=== PATIENT | female | born 1975 | race Caucasian/White ===

== ENCOUNTER 2016-10-31 09:06 | Emergency (ER) | payer BC ==
[~2016-10-31] VITALS: Wt 67.0 kg
[~2016-10-31 09:06] MED LIST: ACET500C5 PO; AMOX1TAB67 PO; AZIT500T3 PO; CALC-649; CIPR500T4 PO; DOCU-144 PO; FLUC150T17 PO; HYDR-3498 PO; IBUP-1542 PO; IBUP400T22 PO; METF500T4 PO; NAPR-260 PO; NPH; PRED20TA PO; SIME180C36 PO; SS
[2016-10-31 10:12] LABS: URINE BLOOD (Dip) POC Negative (NEGATIVE)
[2016-10-31] MEDS ORDERED: SOD CHLORIDE 0.9% 1,000 ML IV ONE (11:00)
[2016-10-31] MEDS ORDERED: INSULIN LISPRO 100 UNIT/ML VIAL SC STA (11:26)
[2016-10-31] MEDS ORDERED: INSULIN ASPART [NOVOLOG] 3 ML PEN SC STA (11:55)
[2016-10-31 11:59] LABS: BASOPHILS % 0.4 % (0.0-2.0); EOSINOPHILS # 0.2 10^3/ul (0.0-0.5); EOSINOPHILS % 1.7 % (0.0-7.0); HEMATOCRIT 40.7 % (37.0-47.0); HEMOGLOBIN 13.9 g/dl (12.0-16.0); LYMPHOCYTES # 2.9 10^3/ul (0.8-2.9); MEAN CORPUSCULAR HEMOGLOBIN 29.3 pg (29.0-33.0); MEAN CORPUSCULAR HGB CONC 34.1 g/dl (32.0-37.0); MEAN CORPUSCULAR VOLUME 86.1 fl (82.0-101.0); MEAN PLATELET VOLUME 8.2 fl (7.4-10.4); MONOCYTE # 0.6 10^3/ul (0.3-0.9); MONOCYTES % 6.5 % (0.0-11.0); NEUTROPHIL # 5.2 10^3/ul (1.6-7.5); NEUTROPHILS % 58.4 % (39.0-77.0); PLATELET COUNT 342 10^3/UL (140-440); RED BLOOD COUNT 4.72 10^6/ul (4.20-5.40); RED CELL DISTRIBUTION WIDTH 13.5 % (11.5-14.5); UNCORRECTED WBC 8.9 10^3/ul (4.8-10.8); WHITE BLOOD COUNT 8.9 10^3/ul (4.8-10.8)
[2016-10-31 12:00] LABS: CONDITION 1
[2016-10-31 12:02] LABS: ALBUMIN 4.7 g/dl (3.3-4.9)
[2016-10-31 12:03] LABS: POTASSIUM 4.3 mmol/L (3.5-5.1)
[2016-10-31 12:05] LABS: ALBUMIN/GLOBULIN RATIO 1.23; BILIRUBIN,INDIRECT 0.3 mg/dl (0-1.1); BILIRUBIN,TOTAL 0.3 mg/dl (0.2-1.3); CREATININE 0.53 mg/dl (0.44-1.00); TOTAL PROTEIN 8.5 g/dl (6.1-8.1)
[2016-10-31 12:06] LABS: CALCIUM 10.2 mg/dl (8.4-10.2)
[2016-10-31] MEDS ORDERED: NITR-58 PO (12:29)
[2016-10-31] MEDS ORDERED: FLUC150T17 PO (12:30)
[2016-10-31] MEDS ORDERED: MICO24CM3 VAG (12:30)
[2016-10-31 12:45] VITALS: BP 114/75; PULSE 79; RESP 21; TEMP 98.7
--- NOTE | 2016-10-31 16:09 | ERD ---
ER Documentation Chief Complaint Date/Time DATE: 10/31/16 TIME: 16:07 Chief Complaint VAGINAL DISCHARGE FOR A FEW DAYS. VAGINAL ITCHING ASWELL. NO BLEEDING HPI This is a 41-year-old female presents to the ER for white cottage cheese like vaginal discharge and vaginal itching. Patient denies any urinary frequency or dysuria. She denies any pelvic pain. Has a past medical history of diabetes and states that she gets infections often secondary to her elevated blood sugars. Denies any fevers or chills. ROS 12 point review of systems was done, all negative except per HPI. Medications Home Meds Active Scripts Miconazole Nitrate* (Monistat 3*) 24 Gm Cmb.pf.crm, 1 APPFUL VAG HS for 3 Days, TUB X 3 Prov:JOHAN AVALOS 10/31/16 Fluconazole* (Diflucan*) 150 Mg Tablet, 150 MG PO DAILY for 1 Day, TAB Prov:JOHAN AVALOS 10/31/16 Nitrofurantoin Monohyd Macrocr* (Macrobid*) 100 Mg Capsr, 100 MG PO BID for 7 Days, CAP Prov:JOHAN AVALOS 10/31/16 Fluconazole* (Diflucan*) 150 Mg Tablet, 150 MG PO ONCE, #1 TAB Prov:DIANELYS SEQUEIRA PA-C 06/19/16 Metformin* (Glucophage*) 500 Mg Tab, 500 MG PO BID, #30 TAB Prov:DIANELYS SEQUEIRA PA-C 06/19/16 Docusate Sodium* (Colace*) 100 Mg Capsule, 100 MG PO BID, #60 CAP Prov:DIANELYS SEQUEIRA PA-C 06/19/16 Simethicone (Simethicone) 180 Mg Capsule, 180 MG PO DAILY, #10 CAP Prov:DIANELYS SEQUEIRA PA-C 06/19/16 Hydrocodone Bit-Acetaminophen* ([place]*) 5-325 Mg Tab, 1 TAB PO Q6 Y for PAIN, # 7 TAB Prov:NITA DIOR PA-C 04/26/16 Naproxen* (Naprosyn*) 500 Mg Tablet, 500 MG PO BID Y for PAIN AND/OR INFLAMMATION, #30 TAB Prov:NITA DIOR PA-C 04/26/16 Ciprofloxacin Hcl* (Ciprofloxacin Hcl*) 500 Mg Tablet, 500 MG PO BID for 10 Days , TAB Prov:NITA DIOR PA-C 04/26/16 Prednisone* (Prednisone*) 20 Mg Tab, 40 MG PO DAILY for 4 Days, TAB Prov:ALANNAH WAY MD 10/11/15 Ibuprofen* (Motrin*) 600 Mg Tab, 600 MG PO Q6, #14 TAB Prov:ALANNAH WAY MD 10/11/15 Azithromycin* (Zithromax*) 500 Mg Tablet, 500 MG PO DAILY for 5 Days, TAB Prov:ALANNAH WAY MD 10/11/15 Ibuprofen* (Ibuprofen*) 400 Mg Tablet, 400 MG PO Q6H Y for PAIN, #30 TAB Prov:GARRY SANCHEZ PA-C 09/24/15 Acetaminophen* (Tylophen*) 500 Mg Capsule, 1 CAP PO Q4 Y for PAIN AND OR ELEVATED TEMP, #30 CAP Prov:GARRY SANCHEZ PA-C 09/24/15 Amoxicillin-Clavulanate K* (Augmentin*) 500 Mg Tab, 500 MG PO BID for 7 Days, TAB Prov:GARRY SANCHEZ PA-C 09/24/15 Reported Medications Calcium Carbonate (Calcium) 1 Tab Tablet 07/08/10 Insulin Human Nph (Novolin-N) 100 Units/Ml Susp 07/08/10 Insulin Human Nph (Novolin-N) 100 Units/Ml Susp 07/08/10 Insulin Human Regular (Novolin-R U-100) 100 Unit/Ml Soln 07/08/10 Insulin Human Regular (Novolin-R U-100) 100 Unit/Ml Soln 07/08/10 Allergies Allergies: Coded Allergies: No Known Drug Allergy (Verified Allergy, Unknown, 06/19/16) Uncoded Allergies: NKDA (Allergy, Mild, 07/08/10) PMhx/Soc History of Surgery: Yes (CS X 1) Anesthesia Reaction: No Hx Neurological Disorder: No Hx Respiratory Disorders: No Hx Cardiac Disorders: No Hx Psychiatric Problems: No Hx Miscellaneous Medical Probl: No Hx Alcohol Use: No Hx Substance Use: No Hx Tobacco Use: No Physical Exam Vitals Vital Signs Date Time Temp Pulse Resp B/P Pulse Ox O2 Delivery O2 Flow Rate FiO2 10/31/16 12:45 98.7 79 21 114/75 99 Room Air 10/31/16 09:10 98.4 77 21 115/71 99 Physical Exam GENERAL: The patient is well developed and appropriate for usual state of health , in no apparent distress. HEENT: Atraumatic. CHEST: Clear to auscultation bilaterally. There are no rales, wheezes or rhonchi. HEART: Regular rate and rhythm. No murmurs, clicks, rubs or gallops. ABDOMEN: Soft, nontender and nondistended. Good bowel sounds. No rebound or guarding. No gross peritonitis. No gross organomegaly or masses. No Goins sign or McBurney point tenderness. BACK: No midline or flank tenderness. NEURO: Alert and oriented. Result Diagram: 10/31/16 1100 10/31/16 1100 Results 24 hrs Laboratory Tests Test 10/31/16 10:13 10/31/16 10:55 10/31/16 11:00 10/31/16 12:05 Bedside Urine Blood Negative Bedside Urine Glucose (UA) 0.50% Bedside Urine Ketones (LAB) Negative Bedside Urine Leukocyte Esterase (L 1+ Bedside Urine Nitrite (LAB) Positive Bedside Urine Protein (LAB) Negative Bedside Urine pH (LAB) 6.0 Bedside Glucose 312mg/dL 272mg/dL Alanine Aminotransferase (ALT/SGPT) 26IU/L Albumin 4.7g/dl Albumin/Globulin Ratio 1.23 Alkaline Phosphatase 104IU/L Anion Gap 19 Aspartate Amino Transf (AST/SGOT) 16IU/L Basophils # 0.010^3/ul Basophils % 0.4% Blood Urea Nitrogen 12mg/dl Calcium Level 10.2mg/dl Carbon Dioxide Level 26mmol/L Chloride Level 97mmol/L Creatinine 0.53mg/dl Direct Bilirubin 0.00mg/dl Eosinophils # 0.210^3/ul Eosinophils % 1.7% Globulin 3.80g/dl Glucose Level 325mg/dl Hematocrit 40.7% Hemoglobin 13.9g/dl Indirect Bilirubin 0.3mg/dl Lymphocytes # 2.910^3/ul Lymphocytes % 33.0% Mean Corpuscular Hemoglobin 29.3pg Mean Corpuscular Hemoglobin Concent 34.1g/dl Mean Corpuscular Volume 86.1fl Mean Platelet Volume 8.2fl Monocytes # 0.610^3/ul Monocytes % 6.5% Neutrophils # 5.210^3/ul Neutrophils % 58.4% Nucleated Red Blood Cells # 0.010^3/ul Nucleated Red Blood Cells % 0.0/100WBC Platelet Count 37717^3/UL Potassium Level 4.3mmol/L Red Blood Count 4.7210^6/ul Red Cell Distribution Width 13.5% Sodium Level 138mmol/L Total Bilirubin 0.3mg/dl Total Protein 8.5g/dl White Blood Count 8.910^3/ul Current Medications Medications (Trade) Dose Ordered Sig/Brittany Route PRN Reason Start Time Stop Time Status Last Admin Dose Admin Sodium Chloride (NS) 1,000 ml @ 1,000 mls/hr Q1H ONCE IV 10/31/16 11:00 10/31/16 11:59 DC 10/31/16 11:01 Insulin Human Lispro (Humalog) 6 unit ONCE STAT SC 10/31/16 11:26 10/31/16 11:28 DC Insulin Aspart (Novolog Insulin Pen) 6 unit ONCE STAT SC 10/31/16 11:55 10/31/16 11:56 DC 10/31/16 12:07 Procedures/MDM This is a 41-year-old female presents to the ER with vaginal discharge. Patient more likely has a yeast infection. Patient was also contacted a urinary tract infection here in the ER. Throughout the ER course patient stated that her blood sugar was elevated and that she did not take her medication at home. He was also complaining of blurry vision. Because of this bloodwork was done and blood sugar was found to be elevated. Patient was given 6 units of insulin, blood sugar improved. She was also given fluids. Patient will be sent home with Yohana [place] monistat. She is to follow-up with her primary care doctor within 1-2 days or return to ER sooner symptoms worsen. My medical decision making was shared with the patient she understands and agrees with plan. Departure Diagnosis: Primary Impression: Yeast infection Additional Impression: UTI (urinary tract infection) Condition: Stable Patient Instructions: Understanding Urinary Tract Infections (UTIs) Additional Instructions: Call your primary care doctor TOMORROW for an appointment during the next 1-2 days.See the doctor sooner or return here if your condition worsens before your appointment time. JOHAN AVALOS Oct 31, 2016 16:09
== END 2016-10-31 12:46 | disposition home or self-care (01) ==
LOC: FTE 09:06
DX: B37.9 Candidiasis, unspecified (principal); N39.0 Urinary tract infection, site not specified; Z79.84 Long term (current) use of oral hypoglycemic drugs; Z79.4 Long term (current) use of insulin
CPT/HCPCS: 80053; 81003; 82962; 85025; 96372; 99284; J1815; J7030

== ENCOUNTER 2017-04-18 09:35 | Emergency (ER) | payer BC ==
[~2017-04-18] VITALS: Wt 78.0 kg
[~2017-04-18 09:35] MED LIST changes: +MICO24CM3 VAG; +NITR-58 PO
[2017-04-18] MEDS ORDERED: HYDROCODONE/APAP (5/325) TAB PO ONE (10:00)
[2017-04-18 10:33] LABS: ADD UMIC YES; UR ASCORBIC ACID NEGATIVE (NEGATIVE); UR BILIRUBIN (Dip) NEGATIVE (NEGATIVE); UR BLOOD (Dip) NEGATIVE (NEGATIVE); UR CLARITY CLEAR (CLEAR); UR COLOR YELLOW (YELLOW); UR GLUCOSE (Dip) 3+ mg/dL (NEGATIVE); UR KETONES (Dip) NEGATIVE (NEGATIVE); UR LEUKOCYTE ESTERASE (Dip) NEGATIVE Leu/ul (NEGATIVE); UR NITRITE (Dip) NEGATIVE (NEGATIVE); UR RBC 1 /HPF (0-5); UR SPECIFIC GRAVITY (Dip) 1.032 (1.003-1.030); UR TOTAL PROTEIN (Dip) 1+ mg/dl (NEGATIVE); UR UROBILINOGEN (Dip) NEGATIVE (NEGATIVE)
[2017-04-18] MEDS ORDERED: KETOROLAC 30 MG INJ IM STA (11:11)
--- NOTE | 2017-04-18 11:13 | ERD ---
ER Documentation Chief Complaint Date/Time DATE: 04/18/17 TIME: 11:12 Chief Complaint LEFT SIDED FLANK PAIN SINCE YESTERDAY HPI This 41-year-old female presents to the emergency department today complaining of left-sided flank pain that started yesterday. States she took Tylenol with no improvement. States she think she has a history of kidney stones and kidney infections. Denies any fevers or chills, nausea or vomiting. States she think she also has a yeast infection has been using some medication [id number] that she got from [place] that she thinks is similar to Monistat. States she has some vaginal itching ROS All systems reviewed and are negative except as per history of present illness. Medications Home Meds Active Scripts Naproxen* (Naprosyn*) 500 Mg Tablet, 500 MG PO BID Y for PAIN AND/OR INFLAMMATION, #30 TAB Prov:MONICA MARSHALL PA-C 04/18/17 Fluconazole* (Diflucan*) 150 Mg Tablet, 150 MG PO ONCE, #2 TAB Prov:MONICA MARSHALL PA-C 04/18/17 Miconazole Nitrate* (Monistat 3*) 24 Gm Cmb.pf.crm, 1 APPFUL VAG HS for 3 Days, TUB X 3 Prov:JOHAN AVALOS 10/31/16 Fluconazole* (Diflucan*) 150 Mg Tablet, 150 MG PO DAILY for 1 Day, TAB Prov:JOHAN AVALOS 10/31/16 Nitrofurantoin Monohyd Macrocr* (Macrobid*) 100 Mg Capsr, 100 MG PO BID for 7 Days, CAP Prov:JOHAN AVALOS 10/31/16 Fluconazole* (Diflucan*) 150 Mg Tablet, 150 MG PO ONCE, #1 TAB Prov:DIANELYS SEQUEIRA PA-C 06/19/16 Metformin* (Glucophage*) 500 Mg Tab, 500 MG PO BID, #30 TAB Prov:DIANELYS SEQUEIRA PA-C 06/19/16 Docusate Sodium* (Colace*) 100 Mg Capsule, 100 MG PO BID, #60 CAP Prov:DIANELYS SEQUEIRA PA-C 06/19/16 Simethicone (Simethicone) 180 Mg Capsule, 180 MG PO DAILY, #10 CAP Prov:DIANELYS SEQUEIRA PA-C 06/19/16 Hydrocodone Bit-Acetaminophen* ([place]*) 5-325 Mg Tab, 1 TAB PO Q6 Y for PAIN, # 7 TAB Prov:NITA DIOR PA-C 04/26/16 Naproxen* (Naprosyn*) 500 Mg Tablet, 500 MG PO BID Y for PAIN AND/OR INFLAMMATION, #30 TAB Prov:NITA DIOR PA-C 04/26/16 Ciprofloxacin Hcl* (Ciprofloxacin Hcl*) 500 Mg Tablet, 500 MG PO BID for 10 Days , TAB Prov:NITA DIOR PA-C 04/26/16 Prednisone* (Prednisone*) 20 Mg Tab, 40 MG PO DAILY for 4 Days, TAB Prov:ALANNAH HAWK MD 10/11/15 Ibuprofen* (Motrin*) 600 Mg Tab, 600 MG PO Q6, #14 TAB Prov:ALANNAH HAWK MD 10/11/15 Azithromycin* (Zithromax*) 500 Mg Tablet, 500 MG PO DAILY for 5 Days, TAB Prov:ALANNAH HAWK MD 10/11/15 Ibuprofen* (Ibuprofen*) 400 Mg Tablet, 400 MG PO Q6H Y for PAIN, #30 TAB Prov:GARRY SANCHEZ PA-C 09/24/15 Acetaminophen* (Tylophen*) 500 Mg Capsule, 1 CAP PO Q4 Y for PAIN AND OR ELEVATED TEMP, #30 CAP Prov:GARRY SANCHEZ PA-C 09/24/15 Amoxicillin-Clavulanate K* (Augmentin*) 500 Mg Tab, 500 MG PO BID for 7 Days, TAB Prov:GARRY SANCHEZ PA-C 09/24/15 Reported Medications Calcium Carbonate (Calcium) 1 Tab Tablet 07/08/10 Insulin Human Nph (Novolin-N) 100 Units/Ml Susp 07/08/10 Insulin Human Nph (Novolin-N) 100 Units/Ml Susp 07/08/10 Insulin Human Regular (Novolin-R U-100) 100 Unit/Ml Soln 07/08/10 Insulin Human Regular (Novolin-R U-100) 100 Unit/Ml Soln 07/08/10 Allergies Allergies: Coded Allergies: No Known Drug Allergy (Verified Allergy, Unknown, 04/18/17) Uncoded Allergies: NKDA (Allergy, Mild, 07/08/10) PMhx/Soc History of Surgery: Yes (CS X 1) Anesthesia Reaction: No Hx Neurological Disorder: No Hx Respiratory Disorders: No Hx Cardiac Disorders: No Hx Psychiatric Problems: No Hx Miscellaneous Medical Probl: Yes (dm) Hx Alcohol Use: No Hx Substance Use: No Hx Tobacco Use: No Physical Exam Vitals Vital Signs Date Time Temp Pulse Resp B/P Pulse Ox O2 Delivery O2 Flow Rate FiO2 04/18/17 09:37 98.1 78 18 137/71 99 Physical Exam Const: No acute distress Head: Atraumatic Eyes: Normal Conjunctiva ENT: Normal External Ears, Nose and Mouth. Neck: Full range of motion..~ No meningismus. Resp: Clear to auscultation bilaterally Cardio: Regular rate and rhythm, no murmurs Abd: Soft, non tender, non distended. Normal bowel sounds : Vaginal exam Skin: No petechiae or rashes Back: No midline tenderness. Left-sided flank tenderness. Full active range of motion. No CVA tenderness. Ext: No cyanosis, or edema Neur: Awake and alert Psych: Normal Mood and Affect Results 24 hrs Laboratory Tests Test 04/18/17 10:10 Urine Color YELLOW Urine Clarity CLEAR Urine pH 6.0 Urine Specific [place] 1.032 Urine Ketones NEGATIVEmg/dL Urine Nitrite NEGATIVEmg/dL Urine Bilirubin NEGATIVEmg/dL Urine Urobilinogen NEGATIVEmg/dL Urine Leukocyte Esterase NEGATIVELeu/ul Urine Microscopic RBC 1/HPF Urine Microscopic WBC 2/HPF Urine Hemoglobin NEGATIVEmg/dL Urine Glucose 3+mg/dL Urine Total Protein 1+mg/dl Current Medications Medications (Trade) Dose Ordered Sig/Brittany Route PRN Reason Start Time Stop Time Status Last Admin Dose Admin Acetaminophen/ Hydrocodone Bitart ([place] (5/325)) 1 tab ONCE ONCE PO 04/18/17 10:00 04/18/17 10:01 DC 04/18/17 10:12 Ketorolac Tromethamine (Toradol) 30 mg ONCE STAT IM 04/18/17 11:11 04/18/17 11:12 DC 04/18/17 11:55 Procedures/MDM This 41-year-old female presents the emergency department today complaining of left-sided flank pain and "a yeast infection". On physical exam patient has left-sided flank pain. She is afebrile and otherwise well-appearing. She has no abdominal pain. I did obtain a UA UA shows negative leukocyte esterase. Negative nitrites. One microscopic red blood cell and 1 microscopic white blood cell. She does have 3+ glucose in her urine. Patient does medication for diabetes. Urine test is negative Vaginal exam shows evidence of yeast and friable cervix. No cervical motion tenderness. Low suspicion for PID at this time. Patient is instructed to make an appointment with her [employer]. Patient was given [place] here in the emergency department. She stated that her pain persisted and was therefore given Toradol. Patient will begin a prescription for Naprosyn at home. Her flank pain may be related to musculoskeletal pain. Low suspicion for cauda equina or abscess, pyelonephritis or nephrolithiasis. At this time the patient is stable for discharge and outpatient management. Patient should follow up with their PCP in the next 1-2 days. They may return to the emergency department sooner for any persistent or worsening of symptoms. Patient understood and agreed with the plan. Discussed the patient with Dr. Hawk and he is in agreement with the plan Departure Diagnosis: Primary Impression: Flank pain Additional Impression: Yeast infection Condition: Fair MONICA MARSHALL PA-C Apr 18, 2017 11:13
[2017-04-18] MEDS ORDERED: FLUC150T17 PO (12:13)
[2017-04-18] MEDS ORDERED: NAPR-260 PO (12:13)
== END 2017-04-18 12:20 | disposition home or self-care (01) ==
LOC: FTE 09:35
DX: R10.9 Unspecified abdominal pain (principal); B37.9 Candidiasis, unspecified; E11.9 Type 2 diabetes mellitus without complications; Z79.4 Long term (current) use of insulin; Z79.84 Long term (current) use of oral hypoglycemic drugs
CPT/HCPCS: 81001; 96372; 99284; J1885; Z7610

== ENCOUNTER 2018-10-27 22:32 | Emergency (ER) | payer BC ==
[~2018-10-27] VITALS: Ht 162.6 cm; Wt 69.3 kg
[~2018-10-27 22:32] MED LIST changes: +FLUC150T PO; -FLUC150T17 PO; +IBUP-1541 PO; -IBUP400T22 PO; +METF-849 PO; -METF500T4 PO; -NAPR-260 PO; +NAPR-985 PO; -SIME180C36 PO; +SIME180C39 PO
[2018-10-27 22:36] VITALS: Ht 162.6 cm; Wt 69.3 kg
[2018-10-27] MEDS ORDERED: ONDANSETRON 4 MG INJ IV STA (23:16)
[2018-10-27] MEDS ORDERED: morphine 4 MG/ML VIAL IV STA (23:16)
[2018-10-28] MEDS ORDERED: IBUP-1542 PO ×2 (00:20→00:28)
[2018-10-28] MEDS ORDERED: ONDA4TAB14 PO ×2 (00:20→00:28)
--- NOTE | 2018-10-28 00:43 | ERD ---
ER Documentation Chief Complaint Chief Complaint INTERMITTENT ABD PAIN X 1 MONTH, LLQ CONSTANT PAIN X 2 DAYS HPI Patient is a 43-year-old female with diabetes who presents with left-sided abdominal pain. The symptoms started today at 2 PM and has been constant. She describes it as a "poking" type pain. She has no fevers. She has no urinary symptoms. She tried ibuprofen with no help. Upon review of old medical records this is the patient's eighth visit to the ER since 2009. Her primary doctor is Dr. Stafford. ROS All systems reviewed and are negative except as per history of present illness. Medications Home Meds Active Scripts Ondansetron (Ondansetron Odt) 4 Mg Tab.rapdis, 4 MG PO Q6H PRN for NAUSEA AND/OR VOMITING, #10 TAB Prov:JONAH IBARRA MD 10/28/18 Ibuprofen* (Motrin*) 600 Mg Tab, 600 MG PO Q6H PRN for PAIN AND OR ELEVATED TEMP, #30 TAB Prov:JONAH IBARRA MD 10/28/18 Ondansetron (Ondansetron Odt) 4 Mg Tab.rapdis, 4 MG PO Q6H PRN for NAUSEA AND/OR VOMITING, #10 TAB Prov:JONAH IBARRA MD 10/28/18 Ibuprofen* (Motrin*) 600 Mg Tab, 600 MG PO Q6H PRN for PAIN AND OR ELEVATED TEMP, #30 TAB Prov:JONAH IBARRA MD 10/28/18 Naproxen* (Naprosyn*) 500 Mg Tablet, 500 MG PO BID PRN for PAIN AND/OR INFLAMMATION, #30 TAB Prov:MONICA MARSHALL PA-C 04/18/17 Fluconazole* (Diflucan*) 150 Mg Tablet, 150 MG PO ONCE, #2 TAB Prov:MONICA MARSHALLC 04/18/17 Miconazole Nitrate* (Monistat 3*) 24 Gm Cmb.pf.crm, 1 APPFUL VAG HS for 3 Days, TUB X 3 Prov:JOHAN AVALOS 10/31/16 Fluconazole* (Diflucan*) 150 Mg Tablet, 150 MG PO DAILY for 1 Day, TAB Prov:JOHAN AVALOS 10/31/16 Nitrofurantoin Monohyd Macrocr* (Macrobid*) 100 Mg Capsr, 100 MG PO BID for 7 Days, CAP Prov:JOHAN AVALOS 10/31/16 Fluconazole* (Diflucan*) 150 Mg Tablet, 150 MG PO ONCE, #1 TAB Prov:DIANELYS SEQUEIRA PA-C 06/19/16 Metformin* (Glucophage*) 500 Mg Tab, 500 MG PO BID, #30 TAB Prov:DIANELYS SEQUEIRA PA-C 06/19/16 Docusate Sodium* (Colace*) 100 Mg Capsule, 100 MG PO BID, #60 CAP Prov:DIANELYS SEQUEIRA PA-C 06/19/16 Simethicone (Simethicone) 180 Mg Capsule, 180 MG PO DAILY, #10 CAP Prov:DIANELYS SEQUEIRA PA-C 06/19/16 Hydrocodone Bit-Acetaminophen* ([place]*) 5-325 Mg Tab, 1 TAB PO Q6 PRN for PAIN, #7 TAB Prov:NITA DIOR PA-C 04/26/16 Naproxen* (Naprosyn*) 500 Mg Tablet, 500 MG PO BID PRN for PAIN AND/OR INFLAMMATION, #30 TAB Prov:NITA DIOR PA-C 04/26/16 Ciprofloxacin Hcl* (Ciprofloxacin Hcl*) 500 Mg Tablet, 500 MG PO BID for 10 Days, TAB Prov:NITA DIOR PA-C 04/26/16 Prednisone* (Prednisone*) 20 Mg Tab, 40 MG PO DAILY for 4 Days, TAB Prov:ALANNAH WAY MD 10/11/15 Ibuprofen* (Motrin*) 600 Mg Tab, 600 MG PO Q6, #14 TAB Prov:ALANNAH WAY MD 10/11/15 Azithromycin* (Zithromax*) 500 Mg Tablet, 500 MG PO DAILY for 5 Days, TAB Prov:ALANNAH WAY MD 10/11/15 Ibuprofen* (Ibuprofen*) 400 Mg Tablet, 400 MG PO Q6H PRN for PAIN, #30 TAB Prov:GARRY SANCHEZ PA-C 09/24/15 Acetaminophen* (Tylophen*) 500 Mg Capsule, 1 CAP PO Q4 PRN for PAIN AND OR ELEVATED TEMP, #30 CAP Prov:GARRY SANCHEZ PA-C 12/27/15 Amoxicillin-Clavulanate K* (Augmentin*) 500 Mg Tab, 500 MG PO BID for 7 Days, TAB Prov:GARRY SANCHEZ PA-C 09/24/15 Reported Medications Calcium Carbonate (Calcium) 1 Tab Tablet 07/08/10 Insulin Human Nph (Novolin-N) 100 Units/Ml Susp 07/08/10 Insulin Human Nph (Novolin-N) 100 Units/Ml Susp 07/08/10 Insulin Human Regular (Novolin-R U-100) 100 Unit/Ml Soln 07/08/10 Insulin Human Regular (Novolin-R U-100) 100 Unit/Ml Soln 07/08/10 Allergies Allergies: Coded Allergies: No Known Drug Allergy (Verified Allergy, Unknown, 04/18/17) Uncoded Allergies: NKDA (Allergy, Mild, 07/08/10) PMhx/Soc History of Surgery: Yes (CS X 1) Anesthesia Reaction: No Hx Neurological Disorder: No Hx Respiratory Disorders: No Hx Cardiac Disorders: Yes (High Cholesterol) Hx Psychiatric Problems: No Hx Miscellaneous Medical Probl: Yes (dm) Hx Alcohol Use: No Hx Substance Use: No Hx Tobacco Use: No Smoking Status: Never smoker FmHx Family History: diabetes Physical Exam Vitals Vital Signs Date Temp Pulse Resp B/P (MAP) Pulse Ox O2 O2 Flow FiO2 Time Delivery Rate 10/27/18 82 16 131/75 100 Room Air 23:00 (93) 10/27/18 82 16 146/71 99 22:36 (96) Physical Exam Const: No acute distress Head: Atraumatic Eyes: Normal Conjunctiva ENT: Normal External Ears, Nose and Mouth. Neck: Full range of motion. No meningismus. Resp: Clear to auscultation bilaterally Cardio: Regular rate and rhythm, no murmurs Abd: Soft, non tender, non distended. Normal bowel sounds Skin: No petechiae or rashes Back: No midline or flank tenderness Ext: No cyanosis, or edema Neur: Awake and alert Psych: Normal Mood and Affect Result Diagram: 10/27/185 10/27/185 Results 24 hrs Laboratory Tests Test 10/27/18 23:15 White Blood Count 10.3 10^3/ul Red Blood Count 4.10 10^6/ul Hemoglobin 11.1 g/dl Hematocrit 33.5 % Mean Corpuscular Volume 81.7 fl Mean Corpuscular Hemoglobin 27.1 pg Mean Corpuscular Hemoglobin Concent 33.1 g/dl Red Cell Distribution Width 13.4 % Platelet Count 392 10^3/UL Mean Platelet Volume 9.4 fl Immature Granulocytes % 0.400 % Neutrophils % 55.9 % Lymphocytes % 30.2 % Monocytes % 10.6 % Eosinophils % 2.0 % Basophils % 0.9 % Nucleated Red Blood Cells % 0.0 /100WBC Immature Granulocytes # 0.040 10^3/ul Neutrophils # 5.7 10^3/ul Lymphocytes # 3.1 10^3/ul Monocytes # 1.1 10^3/ul Eosinophils # 0.2 10^3/ul Basophils # 0.1 10^3/ul Nucleated Red Blood Cells # 0.0 10^3/ul Urine Color YELLOW Urine Clarity CLEAR Urine pH 6.0 Urine Specific [place] 1.023 Urine Ketones TRACE mg/dL Urine Nitrite NEGATIVE mg/dL Urine Bilirubin NEGATIVE mg/dL Urine Urobilinogen NEGATIVE mg/dL Urine Leukocyte Esterase NEGATIVE [place]/ul Urine Hemoglobin NEGATIVE mg/dL Urine Glucose 3+ mg/dL Urine Total Protein NEGATIVE mg/dl Sodium Level 139 mmol/L Potassium Level 4.0 mmol/L Chloride Level 93 mmol/L Carbon Dioxide Level 29 mmol/L Anion Gap 17 Blood Urea Nitrogen 9 mg/dl Creatinine 0.51 mg/dl Est Glomerular Filtrat Rate mL/min > 60 mL/min Glucose Level 258 mg/dl Calcium Level 10.1 mg/dl Total Bilirubin 0.1 mg/dl Direct Bilirubin 0.00 mg/dl Indirect Bilirubin 0.1 mg/dl Aspartate Amino Transf (AST/SGOT) 77 IU/L Alanine Aminotransferase (ALT/SGPT) 63 IU/L Alkaline Phosphatase 93 IU/L Total Protein 8.2 g/dl Albumin 4.6 g/dl Globulin 3.60 g/dl Albumin/Globulin Ratio 1.27 Lipase 142 U/L Current Medications Medications Dose Sig/Brittany Start Time Status Last (Trade) Ordered Route PRN Stop Time Admin Dose Reason Admin Morphine 4 mg ONCE STAT 10/27/18 DC 10/27/18 Sulfate IV 23:16 23:25 (morphine) 10/27/18 23:17 Ondansetron 4 mg ONCE STAT 10/27/18 DC 10/27/18 HCl (Zofran IV 23:16 23:25 Inj) 10/27/18 23:17 Procedures/MDM CT abdomen pelvis negative for surgical process per radiology. Patient is a 43-year-old female who presents with abdominal pain. Laboratory studies are basically normal. CT scan shows no signs of surgical process. At this point I doubt appendicitis, cholecystitis, pancreatitis, diverticulitis, or kidney stone. She can follow-up with her primary doctor within 24 hours for reevaluation. She can return for any worsening symptoms. She will be given a prescription for ibuprofen and Zofran. She was given copies of laboratory s tudies and imaging test prior to discharge. Departure Diagnosis: Primary Impression: Abdominal pain Abdominal location: left lower quadrant Qualified Codes: R10.32 - Left lower quadrant pain Condition: Fair Patient Instructions: Abdominal Pain Referrals: Dr. Stafford Additional Instructions: Call your primary care doctor TOMORROW for an appointment during the next 1-2 days.See the doctor sooner or return here if your condition worsens before your appointment time. JONAH IBARRA MD Oct 28, 2018 00:43
[2018-10-28 00:52] VITALS: BP 125/78; PULSE 75; RESP 15
== END 2018-10-28 00:52 | disposition home or self-care (01) ==
LOC: E/R 22:32
DX: R10.32 Left lower quadrant pain (principal); E11.9 Type 2 diabetes mellitus without complications; Z79.4 Long term (current) use of insulin
CPT/HCPCS: 36415; 74176; 80053; 81003; 83690; 85025; 96374; 96375; 99285; J2270; J2405; Z7610

== ENCOUNTER 2019-06-14 16:44 | Emergency (ER) | payer BC ==
[~2019-06-14] VITALS: Ht 162.6 cm; Wt 66.9 kg
[~2019-06-14 16:44] MED LIST changes: +ATOR10TA65 PO; +DULA0.75 SQ; +FAMO-96 PO; +GLIP10TA14 PO; +MAG355OR14 PO; +ONDA4TAB14 PO; +RANI150T5 PO; +SIME125C69 PO; +SITA1TAB5 PO
[2019-06-14 17:20] VITALS: Ht 162.6 cm; Wt 66.9 kg
[2019-06-14] MEDS ORDERED: BELLADONNA/PHENOBARBITAL TAB PO STA (19:18)
[2019-06-14] MEDS ORDERED: FAMOTIDINE 20 MG TAB PO STA (19:18)
[2019-06-14] MEDS ORDERED: SOD CHLORIDE 0.9% 1,000 ML IV STA (19:18)
[2019-06-14] MEDS ORDERED: LIDOCAINE/MYLANTA 40 ML BTL PO STA (19:18)
[2019-06-14] MEDS ORDERED: KETOROLAC 15 MG INJ IV STA (19:18)
[2019-06-14 22:06] VITALS: BP 122/74; PULSE 76; RESP 18
== END 2019-06-14 22:09 | disposition home or self-care (01) ==
LOC: E/R 16:44
DX: R14.0 Abdominal distension (gaseous) (principal); R10.84 Generalized abdominal pain; E11.9 Type 2 diabetes mellitus without complications; Z79.4 Long term (current) use of insulin
CPT/HCPCS: 36415; 80053; 81003; 81025; 83690; 85025; 96374; 99284; J1885; J7030; Z7610